=== PATIENT | female | born 1965 | race Caucasian/White ===

== ENCOUNTER → 2017-07-30 | Outpatient (CLI) | payer OTHER ==
[~2017-07-30] MED LIST: FLEXERIL10 MG PO; PREMARIN 0.60.625 MG PO; VICODIN1 TAB PO; ZOLPIDEM 5MG TAB5 MG PO
[2017-07-30 17:01] LABS: HEMOGLOBIN 13.7 g/dL (12.2-16.2); LYMPH # 1.6 K/mm3 (0.7-4.5); LYMPH % 14.3 % (10-50.0)
[2017-07-30 19:36] LABS: BUN 11 mg/dL (7-18); FREE THYROXIN INDEX 5.9 ug/dl (5.93-13.13)
[2017-07-30 20:22] LABS: GFR (ESTIMATED) 88 ML/MIN (59-)
== END ==
LOC: LAB 16:40
PROVIDERS: Nurse Practitioner Obstetrics & Gynecology
DX: R10.2 Pelvic and perineal pain (principal); R53.82 Chronic fatigue, unspecified